=== PATIENT | female | born 1985 | race Caucasian/White ===

== ENCOUNTER 2017-08-22 09:38 | Emergency (ER) | END 2017-08-22 11:15 | disposition home or self-care (01) ==

== ENCOUNTER → 2023-03-27 | Outpatient (CLI) | payer OTHER ==
[~2023-03-27] MED LIST: Veetids 500500 MG PO
== END | disposition home or self-care (01) ==
LOC: LAB SHORT 14:53 → LAB 14:53
DX: Z01.419 Encounter for gynecological examination (general) (routine) without abnormal findings (principal)
CPT/HCPCS: G0145